=== PATIENT | male | born 1960 | race Caucasian/White ===

== ENCOUNTER 2016-10-14 17:43 | Emergency (ER) | payer BC ==
[~2016-10-14] VITALS: Ht 182.9 cm; Wt 120.2 kg
[2016-10-14 17:58] VITALS: BP 143/101
== END 2016-10-14 20:12 | disposition home or self-care (01) ==
LOC: ER 17:47
DX: J01.10 Acute frontal sinusitis, unspecified (principal)
CPT/HCPCS: 70450

== ENCOUNTER 2017-12-10 05:54 | Inpatient (IN) | payer BC ==
[2017-12-08 16:30] LABS: Basophils # (auto) 0 uL; Basophils % (auto) 0.4 % (0.0-2.0); Eosinophils # (auto) 0.2 uL; Eosinophils % (auto) 1.6 % (0.0-7.0); Hematocrit 45.4 % (41.0-53.0); Hemoglobin 15.3 g/dL (13.5-17.5); Lymphocytes # (auto) 2.7 uL; Lymphocytes % (auto) 24.8 % (10.0-50.0); Mean Corpuscular Hemoglobin 32.4 pg (28.0-32.0); Mean Corpuscular Hgb Conc. 33.7 g/dL (32.0-36.0); Mean Corpuscular Volume 96.2 fL (80.0-100.0); Monocytes % (auto) 9.1 % (0.0-12.0); Neutrophils # (auto) 6.9 uL; Neutrophils % (auto) 64.1 % (37.0-80.0); Platelet Count (auto) 240 10^3/uL (140-450); Red Blood Cells 4.72 10^6/uL (4.5-5.90); Red Cell Distribution Width 13.2 % (11.8-14.3); White Blood Cell 10.8 10^3/uL (4.4-10.8)
[2017-12-08 16:33] LABS: Urine Bacteria NONE SEEN /hpf (None Seen); Urine Blood Negative /uL (Negative); Urine Specific Gravity 1.021 (1.001-1.035); Urine WBC <1 /hpf (0 - 3)
[2017-12-08 16:45] LABS: BUN/Creatinine Ratio 21.9; Calcium 9.4 mg/dL (8.5-10.1); Potassium 4.1 mmol/L (3.5-5.1)
[2017-12-08 17:04] LABS: INR 0.98 (0.9-1.15); Partial Thromboplastin Time 29.2 sec (22.64-33.71); Prothrombin Time 10.7 sec (9.37-12.3)
[~2017-12-10] VITALS: Ht 182.9 cm; Wt 125.0 kg
[~2017-12-10 05:54] MED LIST: LOSA25TA9 PO
[2017-12-10] MEDS ORDERED: LIDOCAINE 1% HCL (LOCAL ANESTH.) INJ 20ML MDV ONE ×2 (06:38→07:00)
[2017-12-10] MEDS ORDERED: BUPIVACAINE 0.25% INJ 50ML VIAL ONE (06:38)
[2017-12-10] MEDS ORDERED: DOXAPRAM HCL 20 MG/ML 20ML VIAL INJ IV ONE (07:01)
[2017-12-10] MEDS ORDERED: SODIUM CHLORIDE LOCK 10 ML ONE (07:09)
[2017-12-10] MEDS ORDERED: MIDAZOLAM HCL 1MG/1ML-2 ML VIAL ONE (07:09)
[2017-12-10] MEDS ORDERED: ROCURONIUM 10MG/ML 10ML VIAL IV ONE (07:09)
[2017-12-10] MEDS ORDERED: PROPOFOL 10 MG/ML 20 ML IV ONE (07:09)
[2017-12-10] MEDS ORDERED: HYDROmorphone HCL 2 MG/ML VL ONE (07:09)
[2017-12-10] MEDS ORDERED: fentaNYL CITRATE 100 MCG/2 ML VL ONE ×2 (07:09→10:26)
[2017-12-10] MEDS ORDERED: ONDANSETRON HCL 4 MG/2 ML VIAL ONE (07:09)
[2017-12-10] MEDS ORDERED: LEVOFLOXACIN 500MG 100 ML IV ONE (07:32)
[2017-12-10] MEDS ORDERED: METOCLOPRAMIDE HCL 5MG/ml INJ 2ml VIAL IV ONE (08:15)
[2017-12-10] MEDS ORDERED: MORPHINE SULFATE 4 MG/ML SYR/VIAL IV PRN (08:15)
[2017-12-10] MEDS ORDERED: KETOROLAC TROMETH 60MG/2ML VIAL IM ONE (09:03)
[2017-12-10] MEDS ORDERED: GLYCOPYRROLATE 0.2 MG/ML 1ML VIAL ONE (09:03)
[2017-12-10] MEDS ORDERED: NEOSTIGMINE 1 MG/ML INJ (10mg/10ML VIAL) ONE (09:03)
[2017-12-10] MEDS ORDERED: ONDANSETRON HCL 4 MG/2 ML VIAL IV PRN (10:15)
[2017-12-10] MEDS ORDERED: diphenhdrAMINE HCL 50 MG/1 ML VL IV PRN (10:15)
[2017-12-10] MEDS ORDERED: HYDROmorphone HCL 2 MG/ML VL IV PRN (10:15)
[2017-12-10] MEDS ORDERED: ACETAMINOPHEN/CODEINE#3 (300/30mg) TAB PO PRN (10:15)
[2017-12-10 13:15] VITALS: BP 155/91
[2017-12-10] MEDS ORDERED: LOSA100T33 PO (13:24)
[2017-12-10] MEDS ORDERED: ATOR20TA50 PO (13:24)
[2017-12-10] MEDS: D5W/SOD CHL 0.45% 1,000 ML IV SCH ×3 (13:41→20:53)
[2017-12-10 15:00] LABS: BUN/Creatinine Ratio 17.8; Calcium 8.8 mg/dL (8.5-10.1); Potassium 4.1 mmol/L (3.5-5.1)
[2017-12-10] MEDS: MORPHINE SULFATE 4 MG/ML SYR/VIAL IV PRN ×2 (16:21→20:54)
[2017-12-10 17:29] VITALS: BP 135/86
[2017-12-10 22:00] VITALS: BP 138/75
[2017-12-11] MEDS: D5W/SOD CHL 0.45% 1,000 ML IV SCH (05:09)
[2017-12-11] MEDS: MORPHINE SULFATE 4 MG/ML SYR/VIAL IV PRN ×2 (05:10→08:42)
[2017-12-11 05:35] VITALS: BP 122/74
[2017-12-11 09:00] VITALS: BP 151/71
[2017-12-11] MEDS ORDERED: LOSARTAN POTASSIUM 25 MG TAB PO SCH (10:00)
== END 2017-12-11 14:45 | disposition home or self-care (01) | DRG 708 ==
LOC: SUR 05:54 → CENTRAL 05:55
PROVIDERS: ADMIT Urology; ATTEND Urology
PROC: 07TC4ZZ Resection of Pelvis Lymphatic, Percutaneous Endoscopic Approach (ICD-10-PCS; 2017-12-10)
PROC: 0TQC4ZZ Repair Bladder Neck, Percutaneous Endoscopic Approach (ICD-10-PCS; 2017-12-10)
PROC: 8E0W4CZ Robotic Assisted Procedure of Trunk Region, Percutaneous Endoscopic Approach (ICD-10-PCS; 2017-12-10)
PROC: 0VT04ZZ Resection of Prostate, Percutaneous Endoscopic Approach (ICD-10-PCS; principal; 2017-12-10 07:38)
DX: C61 Malignant neoplasm of prostate (principal); E66.01 Morbid (severe) obesity due to excess calories; E78.00 Pure hypercholesterolemia, unspecified; Z88.0 Allergy status to penicillin; Z68.37 Body mass index [BMI] 37.0-37.9, adult; I10 Essential (primary) hypertension
CPT/HCPCS: 36415; 80048; 81001; 85025; 85610; 85730; 86850; 86900; 86901; 87086; J1885; J1956; J2001; J2250; J2405; J2704; J3490

== ENCOUNTER 2017-12-14 11:08 | Inpatient (IN) | payer BC ==
[~2017-12-14] VITALS: Ht 182.9 cm; Wt 115.1 kg
[~2017-12-14 11:08] MED LIST changes: +ATOR20TA50 PO; +LOSA100T33 PO; -LOSA25TA9 PO
[2017-12-14] MEDS ORDERED: SODIUM CHLORIDE 0.9% 500 ML IV ONE (12:08)
[2017-12-14] MEDS ORDERED: MORPHINE SULFATE 4 MG/ML SYR/VIAL IV ONE (12:15)
[2017-12-14] MEDS ORDERED: ONDANSETRON HCL 4 MG/2 ML VIAL IV ONE (12:15)
[2017-12-14 13:07] LABS: Basophils # (auto) 0.1 uL; Basophils % (auto) 0.5 % (0.0-2.0); Eosinophils # (auto) 0.2 uL; Eosinophils % (auto) 1.4 % (0.0-7.0); Hematocrit 47.5 % (41.0-53.0); Hemoglobin 15.9 g/dL (13.5-17.5); Lymphocytes # (auto) 2.2 uL; Mean Corpuscular Hemoglobin 31.9 pg (28.0-32.0); Mean Corpuscular Hgb Conc. 33.5 g/dL (32.0-36.0); Mean Corpuscular Volume 95.2 fL (80.0-100.0); Monocytes # (auto) 0.9 uL; Monocytes % (auto) 8.1 % (0.0-12.0); Neutrophils # (auto) 8.3 uL; Nucleated Red Blood Cells % 0.1 %; Platelet Count (auto) 303 10^3/uL (140-450); Red Blood Cells 4.99 10^6/uL (4.5-5.90); Red Cell Distribution Width 13.2 % (11.8-14.3); White Blood Cell 11.6 10^3/uL (4.4-10.8)
[2017-12-14 13:33] LABS: Urine Bacteria FEW /hpf (None Seen); Urine Blood 2+ /uL (Negative); Urine Specific Gravity 1.012 (1.001-1.035); Urine WBC 13 /hpf (0 - 3)
[2017-12-14 14:16] LABS: Alanine Aminotransferase 29 U/L (16-61); Albumin 3.2 g/dL (3.4-5.0); Alkaline Phosphatase 77 U/L (45-117); Anion Gap 9 (5-15); Aspartate Aminotransferase 20 U/L (15-37); BUN/Creatinine Ratio 22.3; Bilirubin, Total 1.2 mg/dL (0.2-1.0); Blood Urea Nitrogen 25 mg/dL (7-18); Calcium 8.8 mg/dL (8.5-10.1); Carbon Dioxide 23 mmol/L (21-32); Chloride 104 mmol/L (98-107); GFR African American 87 mL/min; GFR Non-African American 72 mL/min; Glucose 95 mg/dL (74-106); Potassium 3.5 mmol/L (3.5-5.1); Sodium 136 mmol/L (136-145); Total Protein 7.3 g/dL (6.4-8.2)
[2017-12-14] MEDS ORDERED: IOHEXOL 350 MG/ML 100ML IJ ONE (14:53)
[2017-12-14] MEDS ORDERED: LEVOFLOXACIN 500MG 100 ML IV ONE (15:30)
[2017-12-14] MEDS ORDERED: VANCOMYCIN PER PHARMACY 0 MG IV SCH (15:30)
[2017-12-14] MEDS ORDERED: diphenhdrAMINE HCL 50 MG/1 ML VL IV ONE (15:30)
[2017-12-14] MEDS ORDERED: NITROGLYCERIN 0.4 MG SL TAB SL PRN (15:45)
[2017-12-14] MEDS ORDERED: TEMAZEPAM 15 MG CAP PO PRN (15:45)
[2017-12-14] MEDS ORDERED: cloNIDine HCL 0.1 MG TAB PO PRN (15:45)
[2017-12-14] MEDS ORDERED: HYDROcodone-ACET 5/325MG TAB PO PRN (15:45)
[2017-12-14] MEDS ORDERED: MORPHINE SULFATE 4 MG/ML SYR/VIAL IV PRN ×2 (15:45)
[2017-12-14] MEDS ORDERED: ONDANSETRON HCL 4 MG/2 ML VIAL IV PRN (15:45)
[2017-12-14] MEDS ORDERED: DOCUSATE SOD 100 MG CAP PO PRN (15:45)
[2017-12-14] MEDS ORDERED: ACETAMINOPHEN 325 MG TAB PO PRN (15:45)
[2017-12-14] MEDS ORDERED: methylPREDNISolone SOD SUCC 125 MG/2 ML VL IV ONE (16:15)
[2017-12-14] MEDS ORDERED: methylPREDNISolone SOD SUCC 125 MG/2 ML VL ONE (16:24)
[2017-12-14] MEDS ORDERED: ENOXAPARIN SOD 100 MG/1 ML SYRINGE SC ONE (16:30)
[2017-12-14] MEDS: SODIUM CHLORIDE 0.9% 1,000 ML IV SCH (16:32)
[2017-12-14] MEDS ORDERED: CIPR-173 PO (17:25)
[2017-12-14] MEDS ORDERED: HYDR1TAB97 PO (17:25)
[2017-12-14] MEDS: VANCOMYCIN 1,250 MG in D5W 5% 250 ML IV SCH (17:45)
[2017-12-14] MEDS: BOOST PLUS 8 ounce PO SCH (18:31)
[2017-12-14 20:00] VITALS: BP 127/74
[2017-12-14 21:30] VITALS: BP 127/74
[2017-12-14] MEDS: ASCORBIC ACID 500 MG TAB PO SCH (21:42)
[2017-12-14] MEDS: FAMOTIDINE 20 MG TAB PO SCH (21:42)
[2017-12-14] MEDS: ATORVASTATIN 20 MG TAB PO SCH (21:42)
[2017-12-15] MEDS: VANCOMYCIN 1,250 MG in D5W 5% 250 ML IV SCH (04:58)
[2017-12-15 05:00] VITALS: BP 138/74
[2017-12-15 05:46] LABS: Basophils # (auto) 0 uL; Basophils % (auto) 0.3 % (0.0-2.0); Eosinophils # (auto) 0 uL; Hematocrit 45.9 % (41.0-53.0); Hemoglobin 15.7 g/dL (13.5-17.5); Lymphocytes # (auto) 0.8 uL; Lymphocytes % (auto) 9.3 % (10.0-50.0); Mean Corpuscular Hgb Conc. 34.3 g/dL (32.0-36.0); Mean Corpuscular Volume 96.4 fL (80.0-100.0); Monocytes # (auto) 0.1 uL; Monocytes % (auto) 1.1 % (0.0-12.0); Neutrophils # (auto) 8.1 uL; Neutrophils % (auto) 89.3 % (37.0-80.0); Nucleated Red Blood Cells % 0.1 %; Platelet Count (auto) 292 10^3/uL (140-450); Red Blood Cells 4.77 10^6/uL (4.5-5.90); Red Cell Distribution Width 13.4 % (11.8-14.3)
[2017-12-15 06:37] LABS: Albumin 3.1 g/dL (3.4-5.0); Bilirubin, Total 0.7 mg/dL (0.2-1.0); Calcium 9.1 mg/dL (8.5-10.1); Potassium 5.2 mmol/L (3.5-5.1); Total Protein 7.4 g/dL (6.4-8.2)
[2017-12-15 08:00] VITALS: BP 150/83
[2017-12-15] MEDS: ZINC SULFATE 220 MG CAP PO SCH (09:54)
[2017-12-15] MEDS: LEVOFLOXACIN 500MG 100 ML IV SCH (09:54)
[2017-12-15] MEDS: FAMOTIDINE 20 MG TAB PO SCH ×2 (09:54→21:26)
[2017-12-15] MEDS: LOSARTAN POTASSIUM 50 MG TAB PO SCH (09:54)
[2017-12-15] MEDS: SODIUM CHLORIDE 0.9% 1,000 ML IV SCH (09:54)
[2017-12-15] MEDS: MULTIPLE VITAMIN TAB PO SCH (09:55)
[2017-12-15] MEDS: HCTZ 25 MG TAB PO SCH (09:55)
[2017-12-15] MEDS: ASCORBIC ACID 500 MG TAB PO SCH ×2 (09:55→21:26)
[2017-12-15] MEDS: BOOST PLUS 8 ounce PO SCH ×3 (09:57→18:04)
[2017-12-15 12:00] VITALS: BP 148/92
[2017-12-15] MEDS ORDERED: ENOXAPARIN SOD 120 MG/0.8 ML SYRINGE SC ONE (12:30)
[2017-12-15 16:56] VITALS: BP 155/81
[2017-12-15 20:00] VITALS: BP 145/77
[2017-12-15] MEDS: ATORVASTATIN 20 MG TAB PO SCH (21:26)
[2017-12-15] MEDS: ENOXAPARIN SOD 120 MG/0.8 ML SYRINGE SC SCH (21:31)
[2017-12-16] MEDS: SODIUM CHLORIDE 0.9% 1,000 ML IV SCH (04:00)
[2017-12-16 05:00] VITALS: BP_SYST 122; BP_SYST 128; BP_DIAS 76; BP_DIAS 78
[2017-12-16 07:05] LABS: Basophils # (auto) 0.1 uL; Basophils % (auto) 0.6 % (0.0-2.0); Eosinophils # (auto) 0 uL; Eosinophils % (auto) 0.2 % (0.0-7.0); Hemoglobin 14.6 g/dL (13.5-17.5); Lymphocytes # (auto) 2.9 uL; Lymphocytes % (auto) 19.6 % (10.0-50.0); Mean Corpuscular Hemoglobin 32.9 pg (28.0-32.0); Mean Corpuscular Hgb Conc. 34.1 g/dL (32.0-36.0); Mean Corpuscular Volume 96.7 fL (80.0-100.0); Monocytes # (auto) 1.3 uL; Monocytes % (auto) 8.3 % (0.0-12.0); Neutrophils # (auto) 10.7 uL; Neutrophils % (auto) 71.3 % (37.0-80.0); Nucleated Red Blood Cells % 0.1 %; Platelet Count (auto) 261 10^3/uL (140-450); Red Blood Cells 4.44 10^6/uL (4.5-5.90); Red Cell Distribution Width 13.3 % (11.8-14.3)
[2017-12-16 07:56] LABS: BUN/Creatinine Ratio 24.4; Bilirubin, Total 0.7 mg/dL (0.2-1.0); Total Protein 6.6 g/dL (6.4-8.2)
[2017-12-16] MEDS: BOOST PLUS 8 ounce PO SCH ×3 (08:00→17:43)
[2017-12-16 08:31] VITALS: BP 141/82
[2017-12-16] MEDS: MULTIPLE VITAMIN TAB PO SCH (09:40)
[2017-12-16] MEDS: LEVOFLOXACIN 500MG 100 ML IV SCH (09:40)
[2017-12-16] MEDS: ZINC SULFATE 220 MG CAP PO SCH (09:40)
[2017-12-16] MEDS: ASCORBIC ACID 500 MG TAB PO SCH ×2 (09:41→21:28)
[2017-12-16] MEDS: FAMOTIDINE 20 MG TAB PO SCH ×2 (09:42→21:28)
[2017-12-16] MEDS: LOSARTAN POTASSIUM 50 MG TAB PO SCH (09:43)
[2017-12-16] MEDS: ENOXAPARIN SOD 120 MG/0.8 ML SYRINGE SC SCH (09:44)
[2017-12-16] MEDS: HCTZ 25 MG TAB PO SCH (09:44)
[2017-12-16] MEDS ORDERED: APIXABAN 5 MG TAB PO SCH (11:15)
[2017-12-16 13:00] VITALS: BP 135/74
[2017-12-16 17:00] VITALS: BP 150/84
[2017-12-16 20:00] VITALS: BP 126/81
[2017-12-16] MEDS: APIXABAN 5 MG TAB PO SCH (21:28)
[2017-12-16] MEDS: ATORVASTATIN 20 MG TAB PO SCH (21:28)
[2017-12-16 21:47] VITALS: BP 126/81
[2017-12-16] MEDS ORDERED: PATIENTS OWN MEDICATION (ELIQUIS 10 MG) PO SCH (22:00)
[2017-12-17 05:47] VITALS: BP 110/60
[2017-12-17 05:56] LABS: Basophils # (auto) 0.1 uL; Basophils % (auto) 0.6 % (0.0-2.0); Eosinophils # (auto) 0.1 uL; Eosinophils % (auto) 0.9 % (0.0-7.0); Hematocrit 44.6 % (41.0-53.0); Hemoglobin 15.4 g/dL (13.5-17.5); Lymphocytes # (auto) 2.6 uL; Lymphocytes % (auto) 25.6 % (10.0-50.0); Mean Corpuscular Hemoglobin 33.2 pg (28.0-32.0); Mean Corpuscular Hgb Conc. 34.4 g/dL (32.0-36.0); Mean Corpuscular Volume 96.5 fL (80.0-100.0); Monocytes # (auto) 0.9 uL; Neutrophils # (auto) 6.6 uL; Neutrophils % (auto) 63.9 % (37.0-80.0); Nucleated Red Blood Cells % 0.2 %; Platelet Count (auto) 259 10^3/uL (140-450); Red Blood Cells 4.63 10^6/uL (4.5-5.90); Red Cell Distribution Width 13.3 % (11.8-14.3); White Blood Cell 10.3 10^3/uL (4.4-10.8)
[2017-12-17 06:10] LABS: Albumin 2.9 g/dL (3.4-5.0); BUN/Creatinine Ratio 23.8; Calcium 9.2 mg/dL (8.5-10.1); Potassium 3.9 mmol/L (3.5-5.1)
[2017-12-17 06:14] LABS: Bilirubin, Total 0.7 mg/dL (0.2-1.0); Total Protein 6.5 g/dL (6.4-8.2)
[2017-12-17 07:30] VITALS: BP 141/82
[2017-12-17 09:00] VITALS: BP 145/89
[2017-12-17] MEDS: SODIUM CHLORIDE 0.9% 1,000 ML IV SCH (10:16)
[2017-12-17] MEDS: FAMOTIDINE 20 MG TAB PO SCH (10:50)
[2017-12-17] MEDS: LOSARTAN POTASSIUM 50 MG TAB PO SCH (10:50)
[2017-12-17] MEDS: ZINC SULFATE 220 MG CAP PO SCH (10:50)
[2017-12-17] MEDS: APIXABAN 5 MG TAB PO SCH (10:50)
[2017-12-17] MEDS: ASCORBIC ACID 500 MG TAB PO SCH (10:51)
[2017-12-17] MEDS: HCTZ 25 MG TAB PO SCH (10:51)
[2017-12-17] MEDS: MULTIPLE VITAMIN TAB PO SCH (10:51)
[2017-12-17] MEDS: BOOST PLUS 8 ounce PO SCH ×2 (10:52→13:02)
[2017-12-17] MEDS: LEVOFLOXACIN 500MG 100 ML IV SCH (10:52)
[2017-12-17 13:00] VITALS: BP 143/87
[2017-12-23] MEDS ORDERED: APIXABAN 5 MG TAB PO SCH (10:00)
== END 2017-12-17 15:50 | disposition home or self-care (01) | DRG 871 ==
LOC: ER 11:08 → TELE 11:09 → TELE-WESTW 17:22
PROVIDERS: ADMIT Internal Medicine; ATTEND Family Medicine
DX: A41.9 Sepsis, unspecified organism (principal); I26.99 Other pulmonary embolism without acute cor pulmonale; E44.0 Moderate protein-calorie malnutrition; N39.0 Urinary tract infection, site not specified; J98.11 Atelectasis; G47.00 Insomnia, unspecified; K59.00 Constipation, unspecified; E78.00 Pure hypercholesterolemia, unspecified; E66.9 Obesity, unspecified; E78.5 Hyperlipidemia, unspecified; I12.9 Hypertensive chronic kidney disease with stage 1 through stage 4 chronic kidney disease, or unspecified chronic kidney disease; N18.2 Chronic kidney disease, stage 2 (mild); Z68.34 Body mass index [BMI] 34.0-34.9, adult; Z85.46 Personal history of malignant neoplasm of prostate; Z90.79 Acquired absence of other genital organ(s); Z88.0 Allergy status to penicillin; Z79.899 Other long term (current) drug therapy
CPT/HCPCS: 36415; 71045; 71260; 74177; 80053; 80202; 81001; 83880; 84484; 85025; 85379; 87040; 87081; 87086; 93005; 93306; 93970; 96365; 96372; 96375; 96376; 99291; J1956; J2405; J7060

== ENCOUNTER 2017-12-28 11:22 | Inpatient (IN) | payer BC ==
[~2017-12-28] VITALS: Ht 182.9 cm; Wt 114.4 kg
[~2017-12-28 11:22] MED LIST changes: +CIPR-173 PO; +HYDR1TAB97 PO
[2017-12-28 12:33] LABS: Basophils # (auto) 0.1 uL; Basophils % (auto) 1.5 % (0.0-2.0); Eosinophils # (auto) 0.3 uL; Eosinophils % (auto) 3.5 % (0.0-7.0); Hemoglobin 14.5 g/dL (13.5-17.5); Lymphocytes # (auto) 2.1 uL; Lymphocytes % (auto) 20.8 % (10.0-50.0); Mean Corpuscular Hemoglobin 31.9 pg (28.0-32.0); Mean Corpuscular Hgb Conc. 33.7 g/dL (32.0-36.0); Mean Corpuscular Volume 94.6 fL (80.0-100.0); Monocytes # (auto) 0.6 uL; Monocytes % (auto) 6.4 % (0.0-12.0); Neutrophils # (auto) 6.8 uL; Neutrophils % (auto) 67.8 % (37.0-80.0); Platelet Count (auto) 289 10^3/uL (140-450); Red Blood Cells 4.55 10^6/uL (4.5-5.90); Red Cell Distribution Width 13.4 % (11.8-14.3)
[2017-12-28 12:50] LABS: Urine WBC 44 /hpf (0 - 3)
[2017-12-28 12:51] LABS: Urine Specific Gravity 1.018 (1.001-1.035)
[2017-12-28 12:54] LABS: INR 1.02 (0.9-1.15); Partial Thromboplastin Time 29.2 sec (22.64-33.71); Prothrombin Time 11.1 sec (9.37-12.3)
[2017-12-28 13:03] LABS: Albumin 3.4 g/dL (3.4-5.0); BUN/Creatinine Ratio 16.8; Bilirubin, Total 0.4 mg/dL (0.2-1.0); Calcium 9.1 mg/dL (8.5-10.1); Potassium 3.8 mmol/L (3.5-5.1)
[2017-12-28 13:05] LABS: Urine Bacteria MOD /hpf (None Seen)
[2017-12-28] MEDS ORDERED: VANCOMYCIN PER PHARMACY 0 MG IV SCH (14:45)
[2017-12-28] MEDS ORDERED: HCTZ 25 MG TAB PO ONE (14:45)
[2017-12-28] MEDS ORDERED: LEVOFLOXACIN 500MG 100 ML IV ONE (14:45)
[2017-12-28] MEDS ORDERED: HYDROcodone-ACET 5/325MG TAB PO PRN (15:00)
[2017-12-28] MEDS ORDERED: DOCUSATE SOD 100 MG CAP PO PRN (15:00)
[2017-12-28] MEDS ORDERED: ONDANSETRON HCL 4 MG/2 ML VIAL IV PRN (15:00)
[2017-12-28] MEDS ORDERED: NITROGLYCERIN 0.4 MG SL TAB SL PRN (15:00)
[2017-12-28] MEDS ORDERED: TEMAZEPAM 15 MG CAP PO PRN (15:00)
[2017-12-28] MEDS ORDERED: MORPHINE SULFATE 4 MG/ML SYR/VIAL IV PRN ×2 (15:00)
[2017-12-28] MEDS ORDERED: ACETAMINOPHEN 325 MG TAB PO PRN (15:00)
[2017-12-28] MEDS ORDERED: WARFARIN SODIUM 5 MG TAB PO ONE (17:00)
[2017-12-28] MEDS: VANCOMYCIN 1GM/250ML 250 ML IV SCH (17:30)
[2017-12-28 20:11] LABS: Hematocrit 41.8 % (41.0-53.0); Hemoglobin 14.1 g/dL (13.5-17.5)
[2017-12-28] MEDS ORDERED: WARF1TAB36 PO (21:11)
[2017-12-28] MEDS: SODIUM CHLOR 0.9% PF (SALINE LOCK) 10ML VIAL IV SCH (21:35)
[2017-12-28] MEDS: ATORVASTATIN 20 MG TAB PO SCH (21:35)
[2017-12-28] MEDS: FAMOTIDINE 20 MG TAB PO SCH (21:35)
[2017-12-28 21:58] VITALS: BP 149/86
[2017-12-29] MEDS: VANCOMYCIN 1GM/250ML 250 ML IV SCH ×2 (00:43→10:03)
[2017-12-29 05:00] VITALS: BP 130/79
[2017-12-29 05:36] LABS: Basophils # (auto) 0.1 uL; Basophils % (auto) 0.6 % (0.0-2.0); Eosinophils # (auto) 0.4 uL; Eosinophils % (auto) 4.1 % (0.0-7.0); Hematocrit 40.9 % (41.0-53.0); Hemoglobin 13.9 g/dL (13.5-17.5); Lymphocytes # (auto) 2.6 uL; Lymphocytes % (auto) 29.6 % (10.0-50.0); Mean Corpuscular Hemoglobin 32.6 pg (28.0-32.0); Mean Corpuscular Hgb Conc. 34.1 g/dL (32.0-36.0); Mean Corpuscular Volume 95.7 fL (80.0-100.0); Monocytes # (auto) 0.7 uL; Monocytes % (auto) 7.7 % (0.0-12.0); Platelet Count (auto) 262 10^3/uL (140-450); Red Blood Cells 4.28 10^6/uL (4.5-5.90); Red Cell Distribution Width 13.6 % (11.8-14.3); White Blood Cell 8.7 10^3/uL (4.4-10.8)
[2017-12-29 05:56] LABS: INR 1.05 (0.9-1.15); Partial Thromboplastin Time 28.4 sec (22.64-33.71); Prothrombin Time 11.4 sec (9.37-12.3)
[2017-12-29 06:15] LABS: Albumin 3.3 g/dL (3.4-5.0); BUN/Creatinine Ratio 19.5; Bilirubin, Total 0.5 mg/dL (0.2-1.0); Calcium 8.7 mg/dL (8.5-10.1); Potassium 3.7 mmol/L (3.5-5.1); Total Protein 6.6 g/dL (6.4-8.2)
[2017-12-29] MEDS: SODIUM CHLOR 0.9% PF (SALINE LOCK) 10ML VIAL IV SCH ×3 (06:33→21:43)
[2017-12-29 09:58] VITALS: BP 135/88
[2017-12-29] MEDS: LEVOFLOXACIN 500MG 100 ML IV SCH (10:10)
[2017-12-29] MEDS: MULTIPLE VITAMIN TAB PO SCH (10:12)
[2017-12-29] MEDS: LOSARTAN POTASSIUM 50 MG TAB PO SCH (10:12)
[2017-12-29] MEDS: FAMOTIDINE 20 MG TAB PO SCH ×2 (10:13→21:44)
[2017-12-29 13:00] VITALS: BP_SYST 141; BP_SYST 152; BP_DIAS 83; BP_DIAS 85
[2017-12-29 16:51] VITALS: BP 127/81
[2017-12-29] MEDS ORDERED: WARFARIN SODIUM 5 MG TAB PO ONE (17:00)
[2017-12-29] MEDS: ATORVASTATIN 20 MG TAB PO SCH (21:43)
[2017-12-29 22:00] VITALS: BP 140/75
[2017-12-30 05:00] VITALS: BP 149/94
[2017-12-30 05:52] LABS: Basophils # (auto) 0.1 uL; Basophils % (auto) 0.7 % (0.0-2.0); Eosinophils # (auto) 0.3 uL; Eosinophils % (auto) 3.6 % (0.0-7.0); Hematocrit 41.7 % (41.0-53.0); Hemoglobin 14.2 g/dL (13.5-17.5); Lymphocytes # (auto) 2.2 uL; Mean Corpuscular Hemoglobin 32.7 pg (28.0-32.0); Mean Corpuscular Hgb Conc. 34.1 g/dL (32.0-36.0); Monocytes # (auto) 0.8 uL; Monocytes % (auto) 8.5 % (0.0-12.0); Neutrophils # (auto) 5.8 uL; Neutrophils % (auto) 63.2 % (37.0-80.0); Nucleated Red Blood Cells % 0.1 %; Platelet Count (auto) 260 10^3/uL (140-450); Red Blood Cells 4.34 10^6/uL (4.5-5.90); Red Cell Distribution Width 13.5 % (11.8-14.3); White Blood Cell 9.2 10^3/uL (4.4-10.8)
[2017-12-30] MEDS: SODIUM CHLOR 0.9% PF (SALINE LOCK) 10ML VIAL IV SCH ×2 (06:00→14:00)
[2017-12-30 06:14] LABS: INR 1.1 (0.9-1.15); Partial Thromboplastin Time 29.2 sec (22.64-33.71)
[2017-12-30 06:21] LABS: Potassium 3.6 mmol/L (3.5-5.1)
[2017-12-30 06:26] LABS: Calcium 8.9 mg/dL (8.5-10.1)
[2017-12-30 08:58] VITALS: BP 150/72
[2017-12-30] MEDS: LEVOFLOXACIN 500MG 100 ML IV SCH (10:14)
[2017-12-30] MEDS: MULTIPLE VITAMIN TAB PO SCH (10:15)
[2017-12-30] MEDS: LOSARTAN POTASSIUM 50 MG TAB PO SCH (10:15)
[2017-12-30] MEDS: FAMOTIDINE 20 MG TAB PO SCH (10:15)
[2017-12-30 13:40] VITALS: BP 133/92
[2017-12-30] MEDS ORDERED: WARFARIN SODIUM 10 MG TAB PO ONE (17:00)
== END 2017-12-30 15:00 | disposition home or self-care (01) | DRG 871 ==
LOC: ER 11:22 → TELE 11:23 → TELE-WESTW 20:42
PROVIDERS: ADMIT Internal Medicine; ATTEND Internal Medicine
DX: A41.9 Sepsis, unspecified organism (principal); N17.0 Acute kidney failure with tubular necrosis; K76.0 Fatty (change of) liver, not elsewhere classified; N18.3 Chronic kidney disease, stage 3 (moderate); D68.9 Coagulation defect, unspecified; N39.0 Urinary tract infection, site not specified; N28.1 Cyst of kidney, acquired; R31.9 Hematuria, unspecified; E78.5 Hyperlipidemia, unspecified; I12.9 Hypertensive chronic kidney disease with stage 1 through stage 4 chronic kidney disease, or unspecified chronic kidney disease; K57.30 Diverticulosis of large intestine without perforation or abscess without bleeding; Z79.01 Long term (current) use of anticoagulants; Z85.46 Personal history of malignant neoplasm of prostate; Z86.711 Personal history of pulmonary embolism; Z90.79 Acquired absence of other genital organ(s); Z88.0 Allergy status to penicillin
CPT/HCPCS: 36415; 74176; 80048; 80053; 81001; 83605; 83735; 85014; 85018; 85025; 85610; 85730; 87081; 87086; 96365; 96375; J1956

== ENCOUNTER 2018-06-13 13:14 | Inpatient (IN) | payer BC, OTHER ==
[~2018-06-13] VITALS: Ht 365.8 cm; Wt 120.2 kg
[~2018-06-13 13:14] MED LIST changes: -CIPR-173 PO; -HYDR1TAB97 PO; +WARF1TAB36 PO
[2018-06-13 13:58] LABS: Urine WBC None Seen /hpf (0 - 3)
[2018-06-13] MEDS ORDERED: ASPirin 81 mg TAB PO ONE ×2 (14:00→14:15)
[2018-06-13 14:33] LABS: Urine Bacteria NONE SEEN /hpf (None Seen); Urine Blood Negative /uL (Negative); Urine Specific Gravity 1.019 (1.001-1.035)
[2018-06-13 14:34] LABS: Basophils # (auto) 0.1 uL; Basophils % (auto) 0.9 % (0.0-2.0); Eosinophils # (auto) 0.1 uL; Eosinophils % (auto) 1.3 % (0.0-7.0); Hematocrit 42.8 % (41.0-53.0); Hemoglobin 14.4 g/dL (13.5-17.5); Lymphocytes # (auto) 2.5 uL; Lymphocytes % (auto) 26.7 % (10.0-50.0); Mean Corpuscular Hemoglobin 31.9 pg (28.0-32.0); Mean Corpuscular Hgb Conc. 33.7 g/dL (32.0-36.0); Mean Corpuscular Volume 94.7 fL (80.0-100.0); Monocytes # (auto) 0.6 uL; Monocytes % (auto) 6.6 % (0.0-12.0); Neutrophils # (auto) 5.9 uL; Neutrophils % (auto) 64.5 % (37.0-80.0); Nucleated Red Blood Cells % 0.1 %; Platelet Count (auto) 241 10^3/uL (140-450); Red Blood Cells 4.53 10^6/uL (4.5-5.90); Red Cell Distribution Width 13.5 % (11.8-14.3); White Blood Cell 9.2 10^3/uL (4.4-10.8)
[2018-06-13 14:45] LABS: INR 0.99 (0.9-1.15); Partial Thromboplastin Time 29.2 sec (23.78-33.04); Prothrombin Time 10.6 sec (9.27-12.13)
[2018-06-13] MEDS ORDERED: ONDANSETRON HCL 4 MG/2 ML VIAL IV ONE (14:45)
[2018-06-13] MEDS ORDERED: MORPHINE SULF INJ 2 MG/ML SYRINGE 1ML IV ONE (14:45)
[2018-06-13 14:50] LABS: Alanine Aminotransferase 43 U/L (16-61); Albumin 3.4 g/dL (3.4-5.0); Anion Gap 10 (5-15); Aspartate Aminotransferase 23 U/L (15-37); BUN/Creatinine Ratio 16.2; Blood Urea Nitrogen 24 mg/dL (7-18); Calcium 8.6 mg/dL (8.5-10.1); Carbon Dioxide 24 mmol/L (21-32); Chloride 108 mmol/L (98-107); GFR African American 63 mL/min; GFR Non-African American 52 mL/min; Glucose 83 mg/dL (74-106); Magnesium 2.2 mg/dL (1.6-2.6); Potassium 3.6 mmol/L (3.5-5.1); Sodium 142 mmol/L (136-145)
[2018-06-13 14:52] LABS: Alcohol, Urine < 3.0 mg/dL (0-5); Amphetamine Screen, Urine NEGATIVE (NEGATIVE); Barbiturate Scree,Urine NEGATIVE (NEGATIVE); Benzodiazephine Screen, Urine NEGATIVE (NEGATIVE); Cannabinoid Screen, Urine NEGATIVE (NEGATIVE); Cocaine Screen, Urine NEGATIVE (NEGATIVE); Opiate Scree,Urine NEGATIVE (NEGATIVE); Phencyclidine Screen, Urine NEGATIVE (NEGATIVE)
[2018-06-13 14:55] LABS: Alkaline Phosphatase 78 U/L (45-117); Bilirubin, Total 0.4 mg/dL (0.2-1.0); Total Protein 7.2 g/dL (6.4-8.2)
[2018-06-13] MEDS ORDERED: ACETAMINOPHEN 500 MG TAB PO PRN (16:15)
[2018-06-13] MEDS ORDERED: ONDANSETRON HCL 4 MG/2 ML VIAL IV PRN (16:15)
[2018-06-13] MEDS ORDERED: LORazepam 0.5 MG TAB PO PRN (16:15)
[2018-06-13] MEDS ORDERED: TEMAZEPAM 15 MG CAP PO PRN (16:15)
[2018-06-13] MEDS ORDERED: NITROGLYCERIN 0.4 MG SL TAB SL PRN (16:15)
[2018-06-13] MEDS: SODIUM CHLORIDE 0.9% 1,000 ML IV SCH (16:17)
[2018-06-13] MEDS: MORPHINE SULF INJ 2 MG/ML SYRINGE 1ML IV PRN ×2 (16:30→19:23)
[2018-06-13] MEDS: HYDROcodone-ACET 5/325MG TAB PO PRN (17:09)
[2018-06-13 20:30] VITALS: BP 138/84
[2018-06-13 21:11] VITALS: BP 138/84
[2018-06-13] MEDS ORDERED: METOPROLOL TARTRATE 25 MG TAB PO ONE (22:00)
[2018-06-13] MEDS: ATORVASTATIN 20 MG TAB PO SCH (22:12)
[2018-06-13] MEDS: APIXABAN 5 MG TAB PO SCH (22:12)
[2018-06-14] MEDS: MORPHINE SULF INJ 2 MG/ML SYRINGE 1ML IV PRN ×3 (00:30→16:04)
[2018-06-14 04:19] VITALS: BP 144/86
[2018-06-14] MEDS: SODIUM CHLORIDE 0.9% 1,000 ML IV SCH ×2 (04:40→18:49)
[2018-06-14 06:08] LABS: Albumin 3.3 g/dL (3.4-5.0); BUN/Creatinine Ratio 23.7; Bilirubin, Total 0.7 mg/dL (0.2-1.0); Calcium 8.8 mg/dL (8.5-10.1); Potassium 3.8 mmol/L (3.5-5.1); Total Protein 6.8 g/dL (6.4-8.2)
[2018-06-14 08:10] VITALS: BP 128/78
[2018-06-14] MEDS ORDERED: NITROGLYCERIN 0.2MG/HR TOPICAL PATCH TD ONE (10:00)
[2018-06-14] MEDS ORDERED: ASPirin 81 mg TAB PO ONE (10:00)
[2018-06-14] MEDS ORDERED: PANTOPRAZOLE 40 MG TAB PO ONE (10:00)
[2018-06-14] MEDS: HYDROcodone-ACET 5/325MG TAB PO PRN (10:13)
[2018-06-14] MEDS: APIXABAN 5 MG TAB PO SCH ×2 (10:39→21:59)
[2018-06-14 12:15] VITALS: BP 135/79
[2018-06-14 16:38] VITALS: BP 132/78
[2018-06-14 21:45] VITALS: BP 143/75
[2018-06-14] MEDS: ATORVASTATIN 20 MG TAB PO SCH (22:00)
[2018-06-15 04:41] VITALS: BP 147/75
[2018-06-15 06:54] LABS: Basophils # (auto) 0 uL; Basophils % (auto) 0.3 % (0.0-2.0); Eosinophils # (auto) 0.2 uL; Eosinophils % (auto) 1.6 % (0.0-7.0); Hemoglobin 13.6 g/dL (13.5-17.5); Lymphocytes % (auto) 21.6 % (10.0-50.0); Mean Corpuscular Hemoglobin 32.7 pg (28.0-32.0); Monocytes # (auto) 0.7 uL; Monocytes % (auto) 7.9 % (0.0-12.0); Neutrophils # (auto) 6.4 uL; Neutrophils % (auto) 68.6 % (37.0-80.0); Platelet Count (auto) 213 10^3/uL (140-450); Red Blood Cells 4.17 10^6/uL (4.5-5.90); Red Cell Distribution Width 13.5 % (11.8-14.3); White Blood Cell 9.4 10^3/uL (4.4-10.8)
[2018-06-15 07:13] LABS: Calcium 8.6 mg/dL (8.5-10.1); Potassium 4.1 mmol/L (3.5-5.1)
[2018-06-15] MEDS: SODIUM CHLORIDE 0.9% 1,000 ML IV SCH (08:01)
[2018-06-15] MEDS ORDERED: ADENOSINE 101 MG in GIVE UN-DILUTED 0 ML IV STA (08:26)
[2018-06-15 09:21] VITALS: BP 147/68
[2018-06-15 10:03] VITALS: BP 143/90
[2018-06-15] MEDS: APIXABAN 5 MG TAB PO SCH (11:15)
[2018-06-15 12:30] VITALS: BP 175/104
[2018-06-15 15:58] VITALS: BP 159/76
[2018-06-15 16:16] VITALS: BP 159/76
== END 2018-06-15 17:30 | disposition home or self-care (01) | DRG 303 ==
LOC: ER 13:17 → TELE 13:18 → TELE-WESTW 20:01
PROVIDERS: ADMIT Internal Medicine; ATTEND Internal Medicine
DX: I25.10 Atherosclerotic heart disease of native coronary artery without angina pectoris (principal); Z68.1 Body mass index [BMI] 19.9 or less, adult; F41.9 Anxiety disorder, unspecified; G47.00 Insomnia, unspecified; E66.01 Morbid (severe) obesity due to excess calories; E78.5 Hyperlipidemia, unspecified; I10 Essential (primary) hypertension; Z79.01 Long term (current) use of anticoagulants; Z85.46 Personal history of malignant neoplasm of prostate; Z86.711 Personal history of pulmonary embolism; Z90.79 Acquired absence of other genital organ(s); Z88.0 Allergy status to penicillin; Z79.899 Other long term (current) drug therapy
CPT/HCPCS: 36415; 71046; 78452; 80048; 80053; 80061; 80307; 81001; 82550; 83735; 83880; 84443; 84484; 85025; 85379; 85610; 85652; 85730; 86141; 93005; 93017; 96374; 96375; J0153; J2405